=== PATIENT | female | born 1960 | race African-American/Black ===

== ENCOUNTER 2022-12-29 11:04 | Emergency (ER) | payer OTHER ==
[~2022-12-29] VITALS: Ht 162.6 cm; Wt 67.6 kg
== END 2022-12-29 15:21 | disposition home or self-care (01) ==
LOC: ER → EDBD 11:04 → ER 11:04
DX: S13.4XXA Sprain of ligaments of cervical spine, initial encounter (principal); V43.52XA Car driver injured in collision with other type car in traffic accident, initial encounter; Y93.89 Activity, other specified; Y92.413 State road as the place of occurrence of the external cause; Z88.0 Allergy status to penicillin; Z88.2 Allergy status to sulfonamides; I10 Essential (primary) hypertension